=== PATIENT | female | born 1980 | race Caucasian/White ===

== ENCOUNTER → 2021-02-28 | Day surgery (SDC) | payer OTHER ==
[~2021-02-28] VITALS: Ht 167.6 cm; Wt 117.9 kg
[~2021-02-28] MED LIST: PROTONIX 40MG T40 MG PO; SYNTHROID150 MCG PO; TRULICITY0.75 MG/0. SC; ZOLOFT100 M1 PO
[2021-02-28 07:52] LABS: EOSINOPHIL 3.7 % (0-5); HCT 38.8 % (37.0-47.0); LYMPHOCYTE 31.2 % (15-48); MCHC 30.9 g/dL (32.0-36.0); MCV 80.8 fL (78.0-100.0); MONOCYTE 6.8 % (0-12); MPV 11.9 fL (6.0-9.5); NRBC 0; PLT 291 K/uL (150-400); RDW 15.3 % (11.5-14.0); WBC 9.2 K/uL (4.0-10.5)
== END | disposition home or self-care (01) ==
LOC: FAS 11-22 10:30
PROVIDERS: Oral & Maxillofacial Surgery
DX: K02.9 Dental caries, unspecified (principal); K04.7 Periapical abscess without sinus; E11.9 Type 2 diabetes mellitus without complications; E66.01 Morbid (severe) obesity due to excess calories; Z88.5 Allergy status to narcotic agent; E03.9 Hypothyroidism, unspecified; F41.9 Anxiety disorder, unspecified; F32.A Depression, unspecified
CPT/HCPCS: 36415; 85025; 93005; J1100; J1170; J2250; J2405; J2704; J2710; J3010; J7120